=== PATIENT | female | born 1960 | race Caucasian/White ===

== ENCOUNTER → 2020-10-07 | Outpatient (CLI) | payer BC | LOC: GMAL 17:36 | PROVIDERS: ATTEND Family Medicine | DX: D51.0 Vitamin B12 deficiency anemia due to intrinsic factor deficiency (principal); M06.9 Rheumatoid arthritis, unspecified; I10 Essential (primary) hypertension; R53.83 Other fatigue; E55.9 Vitamin D deficiency, unspecified ==